=== PATIENT | male | born 1985 | race Caucasian/White ===

== ENCOUNTER 2018-06-29 05:13 | Emergency (ER) | payer OTHER ==
[~2018-06-29] VITALS: Ht 177.8 cm; Wt 63.5 kg
[2018-06-29 06:14] VITALS: BP 128/79
== END 2018-06-29 06:14 | disposition home or self-care (01) ==
LOC: M.ERS 05:13
DX: S61.216A Laceration without foreign body of right little finger without damage to nail, initial encounter (principal); W26.8XXA Contact with other sharp object(s), not elsewhere classified, initial encounter; Y93.89 Activity, other specified; Y92.89 Other specified places as the place of occurrence of the external cause; Y99.8 Other external cause status